=== PATIENT | male | born 1995 ===

== ENCOUNTER 2017-04-27 12:53 | Emergency (ER) | payer MEDICAID, OTHER ==
[2017-04-27 13:00] VITALS: BMI 31.4
[2017-04-27 13:06] VITALS: RESP 18; TEMP 97.7
--- NOTE | 2017-04-27 14:18 | ED PDOC ---
Arrival/HPI - General Chief Complaint: Lower Extremity Problem/Injury Time Seen by Provider: 04/27/17 13:22 Historian: Patient - History of Present Illness Narrative History of Present Illness (Text): 04/27/17 14:12 A 22 year old male presents to the emergency department complaining of left thigh pain. Patient reports he injured his thigh while lifting weights approximately 2 years ago. He has not experienced any pain until recently and came to the emergency room for evaluation. Patient also reports mild nasal congestion and a non-productive cough for the past 2 days. He is also concerned for possible STD and would like to be tested but no symptoms. He says he had sex with a condom twice last week, and the last time without a condom was weeks ago. Patient denies any fever, chills, nausea, vomiting, abdominal pain, chest pain, shortness of breath or any other complaints. Time/Duration: Other (few days) Symptom Course: Unchanged Quality: Other Context: Home Past Medical History - Provider Review Nursing Documentation Reviewed: Yes - Infectious Disease Hx of Infectious Diseases: None - Tetanus Immunization Tetanus Immunization: Unknown - Cardiac Hx Cardiac Disorders: No - Neurological Hx Seizures: No - HEENT Hx Epistaxis: No - Renal Hx Kidney Stones: No - Endocrine/Metabolic Hx Hyperthyroidism: No - Hematological/Oncological Hx Gum Bleeding: No - Integumentary Hx Melanoma: No - Musculoskeletal/Rheumatological Hx Osteoarthritis: No - Gastrointestinal Hx Colostomy: No - Genitourinary/Gynecological Hx Reproductive Disorders: No - Psychiatric Hx Psychophysiologic Disorder: Yes Hx Substance Use: No Other/Comment: ADD,ADHD,dyslexia - Anesthesia Hx Anesthesia: Yes Hx Anesthesia Reactions: No Hx Malignant Hyperthermia: No Family/Social History - Physician Review Nursing Documentation Reviewed: Yes Family/Social History: No Known Family HX Smoking Status: Heavy Smoker > 10 Cigarettes Daily Hx Alcohol Use: Yes Frequency of alcohol use: Socially Hx Substance Use: No Allergies/Home Meds Allergies/Adverse Reactions: Allergies avocado Allergy (Verified 04/27/17 13:01) ANAPHYLAXIS FISH Allergy (Verified 04/27/17 13:01) ANAPHYLAXIS salmon Allergy (Uncoded 04/27/17 13:01) ANAPHYLAXIS Home Medications: Home Meds Medication Instructions Recorded Confirmed No Known Home Med 04/27/17 04/27/17 Review of Systems - Physician Review All systems were reviewed & negative as marked: Yes - Review of Systems Constitutional: absent: Fevers, Night Sweats ENT: Rhinorrhea Respiratory: Cough. absent: SOB, Sputum Cardiovascular: absent: Chest Pain Gastrointestinal: absent: Abdominal Pain, Nausea, Vomiting Musculoskeletal: Other (left thigh pain) Physical Exam Vital Signs Reviewed: Yes Vital Signs Temp Pulse Resp BP Pulse Ox 04/27/17 13:03 97.7 F 79 18 133/80 97 Temperature: Afebrile Blood Pressure: Normal Pulse: Regular Respiratory Rate: Normal Appearance: Positive for: Well-Appearing, Non-Toxic, Comfortable Pain Distress: None Mental Status: Positive for: Alert and Oriented X 3 - Systems Exam Head: Present: Atraumatic, Normocephalic Pupils: Present: PERRL Mouth: Present: Moist Mucous Membranes Pharnyx: Present: Normal. No: ERYTHEMA, EXUDATE, TONSILS ENLARGED Neck: Present: Normal Range of Motion Respiratory/Chest: Present: Clear to Auscultation, Good Air Exchange. No: Respiratory Distress, Accessory Muscle Use Cardiovascular: Present: Regular Rate and Rhythm, Normal S1, S2. No: Murmurs Abdomen: Present: Normal Bowel Sounds. No: Tenderness, Distention, Peritoneal Signs Genitourinary Male: Present: Normal External Genitalia, Circumcised Penis. No: Lesions, Penile Discharge, Testicle Tenderness, Penile Swelling, Masses, Erythema, Hernias, Testicle Swelling Back: Present: Normal Inspection Upper Extremity: Present: Normal Inspection. No: Cyanosis, Edema Lower Extremity: Present: NORMAL PULSES, Normal ROM, Neurovascularly Intact, Other (Protruding portion of left quadricep upon knee flexion). No: Edema, CALF TENDERNESS, Tenderness, Swelling, Erythema, Temperature Abnormalties Neurological: Present: GCS=15, CN II-XII Intact, Speech Normal Skin: Present: Warm, Dry, Normal Color. No: Rashes Psychiatric: Present: Alert, Oriented x 3, Normal Insight, Normal Concentration Medical Decision Making ED Course and Treatment: 04/27/17 14:12 Impression: A 22 year old male with left thigh pain. Patient also notes nasal congestion and cough but with normal exam. He is concerned for STD and requests testing to be done. Plan: -- Left duplex lower extremity ultrasound -- Extremity nonvascular ultrasound -- STD and HIV testing -- Reassess and disposition Progress Notes: 04/27/17 16:11 Sono done - no abnormalities seen - will d/c and have him f/u orthopedics to assess his left quad. Ok for d/c. - RAD Interpretation Radiology Orders: 04/27/17 14:13 DUPLEX LOWER EXTRM VEIN LEFT [US] Stat EXTREMITY NON VASCULAR [US] Stat - Scribe Statement The provider has reviewed the documentation as recorded by the Scribe Raquel Graham Provider Scribe Attestation: All medical record entries made by the Scribe were at my direction and personally dictated by me. I have reviewed the chart and agree that the record accurately reflects my personal performance of the history, physical exam, medical decision making, and the department course for this patient. I have also personally directed, reviewed, and agree with the discharge instructions and disposition. Disposition/Present on Arrival - Present on Arrival Any Indicators Present on Arrival: No History of DVT/PE: No History of Uncontrolled Diabetes: No Urinary Catheter: No History of Decub. Ulcer: No History Surgical Site Infection Following: None - Disposition Have Diagnosis and Disposition been Completed?: Yes Diagnosis: Unspecified injury of left quadriceps muscle, fascia and tendon, initial encounter Disposition: HOME/ ROUTINE Disposition Time: 16:15 Patient Plan: Discharge Condition: GOOD Additional Instructions: Follow up with orthopedics. If any of the STD testing done is positive, you will received a phone call within the next few days. Recommend Robitussin DM ( otc) for the cough. Return to the emergency department if any new concerning symptoms. Referrals: Mathew Gamino III, MD [Medical Doctor] - Follow up with primary [facility] [Outside] - Follow up with primary [facility] [Outside] - Follow up with primary Forms: [email or web address] ([place])
--- NOTE | 2017-04-27 16:00 | US ---
PROCEDURE: Left lower extremity venous US HISTORY: Leg pain and swelling. Evaluate for DVT. PHYSICIAN(S): Jesus Colindres MD. TECHNIQUE: Duplex sonography and color-flow Doppler with graded compression were used to evaluate the deep venous system of the left lower extremity. FINDINGS: The visualized deep venous system of the left lower extremity is sonographically normal and compressible. Normal wave forms and augmentation are seen. There is no sonographic evidence for deep venous thrombosis in the visualized segments of the left lower extremity. IMPRESSION: 1. No sonographic evidence for deep venous thrombosis in the visualized segments of the left lower extremity.
[2017-04-27 16:13] VITALS: BP 128/75; PULSE 75; O2SAT 99
--- NOTE | 2017-04-27 19:02 | US ---
PROCEDURE: Limited nonvascular extremity ultrasound. HISTORY: LLE swelling with knee flexion - r/o ST mass, DVT COMPARISON: Left lower extremity duplex venous sonography April 27, 2017. . Summary of findings on the comparison examination: No sonographic evidence for deep venous thrombosis in the visualized segments of the left lower extremity. TECHNIQUE: Standard protocol for this study/examination. FINDINGS: The area of interest was scanned per institutional protocol. No abnormal fluid collections or masses identified. No evidence of hematoma. Muscular groups comprising the area of interest are unremarkable. No cutaneous or subcutaneous abnormalities detected. IMPRESSION: No significant or acute findings to account for/ related to the clinical presentation.
== END 2017-04-27 16:35 | disposition home or self-care (01) ==
LOC: ED 12:53
DX: S76.102A Unspecified injury of left quadriceps muscle, fascia and tendon, initial encounter (principal); X58.XXXA Exposure to other specified factors, initial encounter; Y93.9 Activity, unspecified; Y92.9 Unspecified place or not applicable

== ENCOUNTER 2017-07-01 20:00 | Emergency (ER) | payer OTHER ==
[2017-07-01 20:00] VITALS: BMI 31.4
[2017-07-01 20:07] VITALS: BP 118/74
--- NOTE | 2017-07-01 20:16 | ED PDOC ---
Arrival/HPI - General Historian: Patient <Seth Bhagat - Last Filed: 07/01/17 20:13> <Zhang Lainez - Last Filed: 07/03/17 04:55> - General Chief Complaint: Eye Problem Time Seen by Provider: 07/01/17 20:13 - History of Present Illness Narrative History of Present Illness (Text): 07/01/17 20:13 22 y/o male, no significant pmh, nkda, doesn't wear eye contacts, c/o lt. facial cheek and eyelid swelling with itching started yesterday. PT. stated that he woke up with lt. eyebrow and facial cheek itching, was swelling and then relief with the benadryl but keep returning, itching with no pain, no difficulty moving the both extraocular movements, no change in vision, no eye pain, no dizziness, no other medical or psychological complaints. (Seth Bhagat) Past Medical History - Provider Review Nursing Documentation Reviewed: Yes - Infectious Disease Hx of Infectious Diseases: None - Tetanus Immunization Tetanus Immunization: Unknown - Cardiac Hx Cardiac Disorders: No - Pulmonary Hx Respiratory Disorders: No - Neurological Hx Neurological Disorder: No - HEENT Hx HEENT Disorder: No - Renal Hx Renal Disorder: No - Endocrine/Metabolic Hx Endocrine Disorders: No - Hematological/Oncological Hx Blood Disorders: No - Integumentary Hx Dermatological Disorder: No - Musculoskeletal/Rheumatological Hx Musculoskeletal Disorders: No - Gastrointestinal Hx Gastrointestinal Disorders: No - Genitourinary/Gynecological Hx Genitourinary Disorders: No - Psychiatric Hx Psychophysiologic Disorder: Yes Hx Substance Use: Yes (CANNABIS) Other/Comment: ADD,ADHD,dyslexia - Anesthesia Hx Anesthesia: Yes Hx Anesthesia Reactions: No Hx Malignant Hyperthermia: No <Seth Bhagat - Last Filed: 07/01/17 20:13> Family/Social History - Physician Review Nursing Documentation Reviewed: Yes Family/Social History: Unknown Family HX Smoking Status: Heavy Smoker > 10 Cigarettes Daily Hx Alcohol Use: Yes Hx Substance Use: Yes (CANNABIS) <Seth Bhagat - Last Filed: 07/01/17 20:13> Allergies/Home Meds <Seth Bhagat - Last Filed: 07/01/17 20:13> <Zhang Lainez - Last Filed: 07/03/17 04:55> Allergies/Adverse Reactions: Allergies avocado Allergy (Verified 07/01/17 20:03) ANAPHYLAXIS FISH Allergy (Verified 07/01/17 20:03) ANAPHYLAXIS salmon Allergy (Uncoded 07/01/17 20:03) ANAPHYLAXIS Review of Systems - Review of Systems Constitutional: absent: Fatigue, Fevers Eyes: absent: Vision Changes ENT: absent: Hearing Changes Respiratory: absent: SOB, Cough Cardiovascular: absent: Chest Pain Gastrointestinal: absent: Abdominal Pain, Nausea, Vomiting Genitourinary Male: absent: Dysuria Musculoskeletal: absent: Arthralgias Skin: Rash, Pruritis, Skin Lesions. absent: Laceration, Abscess, Ulcer, Cellulitis Neurological: absent: Headache, Dizziness, Speech Changes, Facial Droop <Seth Bhagat Q - Last Filed: 07/01/17 20:13> Physical Exam Vital Signs Reviewed: Yes Temperature: Afebrile Blood Pressure: Normal Pulse: Regular Respiratory Rate: Normal Appearance: Positive for: Well-Appearing, Non-Toxic, Comfortable Pain Distress: None Mental Status: Positive for: Alert and Oriented X 3 - Systems Exam Head: Present: Atraumatic, Normocephalic Pupils: Present: PERRL Extroacular Muscles: Present: EOMI. No: Entrapment Conjunctiva: Present: Normal Mouth: Present: Moist Mucous Membranes Neck: Present: Normal Range of Motion Respiratory/Chest: Present: Clear to Auscultation, Good Air Exchange. No: Respiratory Distress, Accessory Muscle Use Cardiovascular: Present: Regular Rate and Rhythm, Normal S1, S2. No: Murmurs Abdomen: Present: Normal Bowel Sounds. No: Tenderness, Distention, Peritoneal Signs Back: Present: Normal Inspection Upper Extremity: Present: Normal Inspection. No: Cyanosis, Edema Lower Extremity: Present: Normal Inspection. No: Edema Neurological: Present: GCS=15, Speech Normal, Motor Func Grossly Intact, Gait Normal, Memory Normal Skin: Present: Warm, Dry, Rashes (Lt. facial cheek and eyebrow region: visible approx. 0.5cm diameter with central insect bite hima hives noted, no bullseye or target signs, no streaking or ulcers, FREOM without limitation. ), Normal Color Psychiatric: Present: Alert, Oriented x 3, Normal Insight, Normal Concentration <Seth Bhagat Q - Last Filed: 07/01/17 20:13> Vital Signs Temp Pulse Resp BP Pulse Ox 07/01/17 20:28 17 99 07/01/17 20:17 98.9 F 89 17 98 07/01/17 20:04 97.8 F 86 16 118/74 99 Medical Decision Making <Seth Bhagat - Last Filed: 07/01/17 20:13> <Zhang Lainez - Last Filed: 07/03/17 04:55> ED Course and Treatment: 07/01/17 20:16 -there is no clinical signs of infection. -benadryl and prednisone -Discharge home with benadryl, predinsone, follow up with your own pmd and credentialing analyst within 2 days to have allergy panel done outpatiently, return to the ER for any new or worsening signs or symptoms. (Seth Bhagat) - Medication Orders Current Medication Orders: Discontinued Medications Diphenhydramine HCl (Benadryl) 50 mg PO STAT STA Stop: 07/01/17 20:14 Last Admin: 07/01/17 20:27 Dose: 50 mg Prednisone (Prednisone Tab) 60 mg PO STAT ONE Stop: 07/01/17 20:14 Last Admin: 07/01/17 20:27 Dose: 60 mg - PA / VP OF MARKETING / Resident Statement BARBARA has reviewed & agrees with the documentation as recorded. <Seth Bhagat - Last Filed: 07/01/17 20:13> - PA / VP OF MARKETING / Resident Statement BARBARA has reviewed & agrees with the documentation as recorded. <Zhang Lainez - Last Filed: 07/03/17 04:55> Disposition/Present on Arrival - Present on Arrival Any Indicators Present on Arrival: No History of DVT/PE: No History of Uncontrolled Diabetes: No Urinary Catheter: No History of Decub. Ulcer: No History Surgical Site Infection Following: None - Disposition Have Diagnosis and Disposition been Completed?: Yes Disposition Time: 20:19 Patient Plan: Discharge <Seth Bhagat - Last Filed: 07/01/17 20:13> <Zhang Lainez - Last Filed: 07/03/17 04:55> - Disposition Diagnosis: Hives, Insect bite Disposition: HOME/ ROUTINE Condition: GOOD Additional Instructions: -Discharge home with benadryl, predinsone, follow up with your own pmd and credentialing analyst within 2 days to have allergy panel done outpatiently, return to the ER for any new or worsening signs or symptoms. Prescriptions: DiphenhydrAMINE [Benadryl] 50 mg PO QID PRN #25 cap PRN Reason: Other predniSONE [Prednisone] 2 tab PO DAILY #8 tab Referrals: Erica Angel MD [Staff Provider] - Follow up with primary Forms: WORK NOTE
[2017-07-01 20:18] VITALS: PULSE 89; RESP 17; TEMP 98.9
[2017-07-01 20:30] VITALS: O2SAT 99
== END 2017-07-01 20:34 | disposition home or self-care (01) ==
LOC: ED 20:00
DX: L50.9 Urticaria, unspecified (principal); S00.262A Insect bite (nonvenomous) of left eyelid and periocular area, initial encounter; S00.86XA Insect bite (nonvenomous) of other part of head, initial encounter; W57.XXXA Bitten or stung by nonvenomous insect and other nonvenomous arthropods, initial encounter; Y93.89 Activity, other specified; Y92.89 Other specified places as the place of occurrence of the external cause

== ENCOUNTER 2018-02-27 15:22 | Emergency (ER) | payer OTHER ==
[2018-02-27 15:34] VITALS: RESP 18; BMI 28.5
--- NOTE | 2018-02-27 15:56 | ED PDOC ---
Arrival/HPI - General Chief Complaint: Dental Pain Time Seen by Provider: 02/27/18 15:44 Historian: Patient - History of Present Illness Narrative History of Present Illness (Text): 02/27/18 15:50 Pt is a 23 yr old male with no PMH who presents to the ED complaining of left inferior tongue pain x 1 day. Pt states he often has mouth ulcers due to the food he eats but more recently noticed a odd sensation further back on his mouth that worried him. Denies dysphagia, dyspnea, trismus, drooling, tongue swelling fever, chills, chest pain, shortness of breath, nausea, vomiting, or mew medications. Time/Duration: 24 hours Symptom Onset: Sudden Symptom Course: Unchanged Quality: Aching Severity Level: Mild Activities at Onset: Rest, Eating Context: Home Past Medical History - Provider Review Nursing Documentation Reviewed: Yes - Travel History Have you recently traveled outside [place] w/in the past 3 mons?: No - Infectious Disease Hx of Infectious Diseases: None - Tetanus Immunization Tetanus Immunization: Unknown - Cardiac Hx Cardiac Disorders: No - Pulmonary Hx Respiratory Disorders: No - Neurological Hx Neurological Disorder: No - HEENT Hx HEENT Disorder: No - Renal Hx Renal Disorder: No - Endocrine/Metabolic Hx Endocrine Disorders: No - Hematological/Oncological Hx Blood Disorders: No - Integumentary Hx Dermatological Disorder: No - Musculoskeletal/Rheumatological Hx Musculoskeletal Disorders: No - Gastrointestinal Hx Gastrointestinal Disorders: No - Genitourinary/Gynecological Hx Genitourinary Disorders: No - Psychiatric Hx Psychophysiologic Disorder: Yes Hx Substance Use: Yes (CANNABIS) Other/Comment: ADD,ADHD,dyslexia - Anesthesia Hx Anesthesia: Yes Hx Anesthesia Reactions: No Hx Malignant Hyperthermia: No Family/Social History - Physician Review Nursing Documentation Reviewed: Yes Family/Social History: Unknown Family HX Smoking Status: Heavy Smoker > 10 Cigarettes Daily Hx Alcohol Use: Yes Hx Substance Use: Yes (CANNABIS) Allergies/Home Meds Allergies/Adverse Reactions: Allergies avocado Allergy (Verified 07/01/17 20:03) ANAPHYLAXIS FISH Allergy (Verified 07/01/17 20:03) ANAPHYLAXIS salmon Allergy (Uncoded 07/01/17 20:03) ANAPHYLAXIS Review of Systems - Physician Review All systems were reviewed & negative as marked: Yes - Review of Systems Constitutional: Normal. absent: Fevers Eyes: Normal. absent: Vision Changes ENT: Normal. absent: TMJ Pain, Sore Throat Respiratory: Normal. absent: SOB Cardiovascular: Normal. absent: Chest Pain Gastrointestinal: Normal. absent: Abdominal Pain Genitourinary Male: Normal Musculoskeletal: Normal Skin: Normal Neurological: Normal Endocrine: Normal Hemo/Lymphatic: Normal Psychiatric: Normal Physical Exam Vital Signs Reviewed: Yes Vital Signs Temp Pulse Resp BP Pulse Ox 02/27/18 17:08 98 F 69 18 125/78 100 02/27/18 15:34 98.0 F 68 18 127/74 97 Temperature: Afebrile Blood Pressure: Normal Pulse: Regular Respiratory Rate: Normal Appearance: Positive for: Well-Appearing, Non-Toxic, Comfortable Pain Distress: None Mental Status: Positive for: Alert and Oriented X 3 - Systems Exam Head: Present: Atraumatic, Normocephalic Mouth: Present: Moist Mucous Membranes, Normal Lips, Normal Tounge, Normal Teeth , Other (aphthous ulcers left floor of mouth; posterior and inferior aspect tongue). No: Dry, Drooling, Trismus Pharnyx: Present: Normal. No: ERYTHEMA, EXUDATE, TONSILS ENLARGED, Peritonsilar Swelling, Uvular Deviation, Muffled/Hoarse Voice Neck: Present: Normal Range of Motion Respiratory/Chest: Present: Clear to Auscultation, Good Air Exchange. No: Respiratory Distress, Accessory Muscle Use Cardiovascular: Present: Regular Rate and Rhythm, Normal S1, S2. No: Murmurs Abdomen: No: Tenderness, Distention, Peritoneal Signs Back: Present: Normal Inspection Upper Extremity: Present: Normal Inspection. No: Cyanosis, Edema Lower Extremity: Present: Normal Inspection. No: Edema Neurological: Present: GCS=15, CN II-XII Intact, Speech Normal Skin: Present: Warm, Dry, Normal Color. No: Rashes Psychiatric: Present: Alert, Oriented x 3, Normal Insight, Normal Concentration Medical Decision Making ED Course and Treatment: 02/27/18 15:56 Impression Pt is a 23 yr old male with no PMH who presents to the ED complaining of left inferior tongue pain x 1 day. On exam, there is a small aphthous ulcer on the posterior and inferior aspect of the tongue on the left side, otherwise, no tongue edema, erythema or exudates ; uvula midline and no pharyngeal erythema Plan Viscous lidocaine 2% swish and spit assess and dispo Progress note pt reports relief of pain advised to continue rinsing mouth with salt water avoid citrus, spice, heat, alcohol and smoking; all of which pt reports doing a lot of apply benzocaine rx for relief f/u with PMD in 2 days - Medication Orders Current Medication Orders: Discontinued Medications Lidocaine HCl (Lidocaine 2% Viscous) 15 ml MM STAT STA Stop: 02/27/18 15:45 Last Admin: 02/27/18 16:02 Dose: 15 ml Disposition/Present on Arrival - Present on Arrival Any Indicators Present on Arrival: Yes History of DVT/PE: No History of Uncontrolled Diabetes: No Urinary Catheter: No History Surgical Site Infection Following: None - Disposition Have Diagnosis and Disposition been Completed?: Yes Diagnosis: Aphthous ulcer of mouth Disposition: HOME/ ROUTINE Disposition Time: 16:56 Patient Plan: Discharge Condition: GOOD Discharge Instructions (ExitCare): Mouth Sores (DC) Additional Instructions: ROBERT BEGUM, thank you for letting us take care of you today. Your provider was Zhang Lainez MD and AIRAM Styles and you were treated for PAINFUL ULCER BEHIND THE TONGUE. The emergency medical care you received today was directed at your acute symptoms. If you were prescribed any medication, please fill it and take as directed. It may take several days for your symptoms to resolve. Return to the Emergency Department if your symptoms worsen, do not improve, or if you have any other problems. Please use the mouth rinse recommend to reduce bacteria and irritations and encourage healing. Avoid food that irritate the mouth such as citrus, spice and heat. Please contact your doctor or call one of the physicians/clinics you have been referred to that are listed on the Patient Visit Information form that is included in your discharge packet. Bring any paperwork you were given at discharge with you along with any medications you are taking to your follow up visit. Our treatment cannot replace ongoing medical care by a primary care provider outside of the emergency department. Thank you for allowing the [facility] team to be part of your care today. Prescriptions: Benzocaine [Anbesol] 9 gm MM Q4 5 Days #1 gel..gram. Forms: [employer] (Romanian)
[2018-02-27 17:09] VITALS: BP 125/78; PULSE 69; TEMP 98; O2SAT 100
== END 2018-02-27 17:08 | disposition home or self-care (01) ==
LOC: ED 15:22
DX: K12.0 Recurrent oral aphthae (principal); F17.210 Nicotine dependence, cigarettes, uncomplicated